=== PATIENT | female | born 1955 | race Caucasian/White ===

== ENCOUNTER 2019-12-10 09:20 | Outpatient (RCR) | payer MEDICARE, MEDICAID | END 2020-01-02 14:10 | disposition still patient (30) | LOC: OPPGERO 09:20 | DX: F33.2 Major depressive disorder, recurrent severe without psychotic features (principal); F43.10 Post-traumatic stress disorder, unspecified; J45.909 Unspecified asthma, uncomplicated; E11.9 Type 2 diabetes mellitus without complications; I10 Essential (primary) hypertension; Z63.4 Disappearance and death of family member; Z63.5 Disruption of family by separation and divorce; Z72.89 Other problems related to lifestyle; Z79.82 Long term (current) use of aspirin; Z79.899 Other long term (current) drug therapy; Z79.84 Long term (current) use of oral hypoglycemic drugs; Z87.891 Personal history of nicotine dependence; Z90.710 Acquired absence of both cervix and uterus; Z90.722 Acquired absence of ovaries, bilateral; Z90.89 Acquired absence of other organs; Z98.890 Other specified postprocedural states ==

== ENCOUNTER 2020-01-05 08:33 | Outpatient (RCR) | payer MEDICARE, MEDICAID | END 2020-02-02 16:10 | disposition home or self-care (01) | LOC: OPPGERO 08:33 | DX: F33.9 Major depressive disorder, recurrent, unspecified (principal); F43.10 Post-traumatic stress disorder, unspecified; E11.9 Type 2 diabetes mellitus without complications; I10 Essential (primary) hypertension; Z72.0 Tobacco use; Z90.711 Acquired absence of uterus with remaining cervical stump; Z90.09 Acquired absence of other part of head and neck; Z87.81 Personal history of (healed) traumatic fracture; Z79.899 Other long term (current) drug therapy; Z79.4 Long term (current) use of insulin; Z63.4 Disappearance and death of family member ==

== ENCOUNTER 2020-02-03 09:14 | Outpatient (RCR) | payer MEDICARE, MEDICAID | END 2020-03-03 17:02 | disposition still patient (30) | LOC: OPPGERO 09:14 | DX: F33.2 Major depressive disorder, recurrent severe without psychotic features (principal); F43.10 Post-traumatic stress disorder, unspecified; Z63.0 Problems in relationship with spouse or partner; Z63.4 Disappearance and death of family member; J45.909 Unspecified asthma, uncomplicated; E11.9 Type 2 diabetes mellitus without complications; Z72.89 Other problems related to lifestyle; Z79.82 Long term (current) use of aspirin; Z79.4 Long term (current) use of insulin; Z79.84 Long term (current) use of oral hypoglycemic drugs; Z79.899 Other long term (current) drug therapy; Z90.722 Acquired absence of ovaries, bilateral; Z87.891 Personal history of nicotine dependence; Z90.710 Acquired absence of both cervix and uterus; Z90.89 Acquired absence of other organs ==

== ENCOUNTER 2020-03-04 14:18 | Outpatient (RCR) | payer MEDICARE, MEDICAID | END 2020-04-02 14:27 | LOC: OPPGERO 14:18 | DX: F33.2 Major depressive disorder, recurrent severe without psychotic features (principal); F43.10 Post-traumatic stress disorder, unspecified; Z62.811 Personal history of psychological abuse in childhood; J45.909 Unspecified asthma, uncomplicated; E11.9 Type 2 diabetes mellitus without complications; I10 Essential (primary) hypertension; Z63.4 Disappearance and death of family member; Z63.5 Disruption of family by separation and divorce; Z79.4 Long term (current) use of insulin; Z79.82 Long term (current) use of aspirin; Z79.899 Other long term (current) drug therapy; Z87.891 Personal history of nicotine dependence; Z90.710 Acquired absence of both cervix and uterus; Z90.89 Acquired absence of other organs; Z98.890 Other specified postprocedural states ==

== ENCOUNTER 2020-04-05 08:49 | Outpatient (RCR) | payer MEDICARE, MEDICAID | END 2020-05-03 16:11 | disposition home or self-care (01) | LOC: OPPGERO 08:49 | DX: F32.9 Major depressive disorder, single episode, unspecified (principal); Z63.4 Disappearance and death of family member; F43.10 Post-traumatic stress disorder, unspecified; E11.9 Type 2 diabetes mellitus without complications; Z79.4 Long term (current) use of insulin; Z90.89 Acquired absence of other organs; Z90.722 Acquired absence of ovaries, bilateral; Z90.710 Acquired absence of both cervix and uterus; Z87.891 Personal history of nicotine dependence ==

== ENCOUNTER 2020-05-04 12:07 | Outpatient (RCR) | payer MEDICARE, MEDICAID | END 2020-06-03 18:18 | disposition home or self-care (01) | LOC: OPPGERO 12:07 | DX: F33.2 Major depressive disorder, recurrent severe without psychotic features (principal); F43.10 Post-traumatic stress disorder, unspecified; J45.909 Unspecified asthma, uncomplicated; E11.9 Type 2 diabetes mellitus without complications; G47.33 Obstructive sleep apnea (adult) (pediatric); Z79.4 Long term (current) use of insulin; Z90.710 Acquired absence of both cervix and uterus; Z90.89 Acquired absence of other organs; Z90.722 Acquired absence of ovaries, bilateral; Z87.891 Personal history of nicotine dependence ==

== ENCOUNTER 2020-06-07 12:44 | Outpatient (RCR) | payer MEDICARE, MEDICAID | END 2020-07-02 12:30 | LOC: OPPGERO 12:44 | DX: F32.9 Major depressive disorder, single episode, unspecified (principal); F43.10 Post-traumatic stress disorder, unspecified ==